=== PATIENT | male | born 1985 | race Caucasian/White ===

== ENCOUNTER 2020-08-18 11:43 | Emergency (ER) | payer OTHER, SELFPAY ==
[2020-08-18 11:51] VITALS: BP 132/76; PULSE 79; RESP 18; TEMP 37.1; O2SAT 98; BMI 24.3
--- NOTE | 2020-08-18 12:09 | HMH.EDUTC ---
[facility] Disposition Clinical Impression: Exposure to COVID-19 virus Pharyngitis Qualifiers: Pharyngitis/tonsillitis etiology: unspecified etiology Qualified Code(s): J02.9 - Acute pharyngitis, unspecified Disposition: Home, Self-Care Condition on Discharge: Good Instructions: DI for Pharyngitis/Tonsillopharyngitis -- Adult, Preventing the Spread of Coronavirus Discharge Instructions Additional Instructions: Drink plenty of fluids. Take tylenol for pain or fever. Return if you begin to have difficulty breathing. Follow up with your regular doctor. GO TO THE ER FOR ANY WORSENING SYMPTOMS Prescriptions: Azithromycin [Z-Darinel 250mg Tab*] 250 mg PO UD DOSE PK #6 tab Transmission Status: Received by [id number] Referrals: PCP,No [Primary Care Provider] - Time of Disposition: :19 Medical Decision Making - Medical Records Medical records reviewed: No: I reviewed the patient's medical records. - Gus Inquiry Pt receiving controlled substance: No Vital Signs: 08/18/20 11:51 08/18/20 12:34 Temperature 98.7 F 98.5 F Temperature Source Oral Oral Pulse Rate 72 Pulse Rate [Left] 79 Respiratory Rate 18 18 Blood Pressure 129/80 Blood Pressure [Right Arm] 132/76 Blood Pressure Mean [Right Arm] 94 02 Sat by Pulse Oximetry 98 Oxygen Delivery Method Room Air - Lab Data Lab Results 08/18/20 12:07: Influenza Type A Ag Negative, Influenza Type B Ag Negative 08/18/20 12:07: Strep Scn Rapid Clinic Negative Orders (Tests/Meds): ORDERS Category Date Time Status Strep Screen Confirmation Stat Micro 08/18/20 12:07 Received [facility] HPI - General Stated complaint: sore throat,no energy Time Seen by Provider: 08/18/20 12:09 Mode of Arrival: Ambulatory Source of Information: Patient Limitations: No Limitations Description of Symptoms (Recalled from Triage Doc. by RN): sore throat, nausea, and fatigue for about a week. HEENT Symptoms (Recalled from RN notes): Yes (sore throat) Resp Symptoms (Recalled from RN notes): No Skin Symptoms (Recalled from RN notes): No MS Symptoms (Recalled from RN notes): No Functional Status (Recalled from RN notes): na - History of Present Illness Provider Complaint: He states that he has had a sore throat and low grade fever for the past 3 days. He denies any sick contacts. He also has had nausea. He has a cough, but he denies any shortness of breath and chest pain. - Related Data Previous Rx's Medication Instructions Recorded Azithromycin [Z-Darinel 250mg Tab*] 250 mg PO UD DOSE PK #6 tab 08/18/20 Allergies Allergy/AdvReac Type Severity Reaction Status Date / Time No Known Allergies Allergy Verified 08/18/20 11:55 - Worker's Comp Is this a Worker's Comp case?: No [facility] History - Hepatitis A Screen Drug use history?: No High risk sexual behaviors?: No History of sexually transmitted infection?: No Currently employed?: No Childcare worker?: No Do you have indoor plumbing?: Yes Do you have electricity?: Yes Attestation statement:: This patient has been screened for Hepatitis A risk factors. I have reviewed the patient's past medical history: Yes - Social History Smoking Status: Never smoker Tobacco Type: cigarettes # Packs/Day (cigarettes): 1 Alcohol Intake: never Alcohol Intake Frequency:: a few times a week Substance Use Type: heroin Occupational Status: employed ROS Obtained: Yes All systems reviewed & no additional complaints - Constitutional Constitutional: Reports chills, Reports fever(s), Reports poor appetite, Reports malaise - Eyes Eyes: Denies eye discharge - ENT Ears, Nose, Mouth, and Throat: Reports as per HPI - Cardiovascular Cardiovascular: Denies chest pain - Respiratory Respiratory: Denies chest congestion, Reports cough, Denies dyspnea, Denies stridor, Denies wheezing - Gastrointestinal Gastrointestingal: Reports: nausea. Denies: abdominal pain, diarrhea, pain with swallowing Physic
[2020-08-18 12:15] LABS: UTC Influenza A Antigen Negative (Negative); UTC Strep Screen (Rapid) Negative (Negative)
[2020-08-18 12:16] LABS: UTC Influenza B Antigen Negative (Negative)
[2020-08-18 12:34] VITALS: BP 129/80; PULSE 72; RESP 18; TEMP 36.9
== END 2020-08-18 12:35 | disposition home or self-care (01) ==
PROVIDERS: Emergency Provider Nurse Practitioner Family
DX: J02.9 Acute pharyngitis, unspecified (principal); R50.9 Fever, unspecified; R11.0 Nausea; R53.83 Other fatigue; R05 Cough; Z20.822 Contact with and (suspected) exposure to COVID-19
CPT/HCPCS: 87804; 87880; 99202; G0463; U0003

== ENCOUNTER 2022-04-17 21:18 | Emergency (ER) | payer OTHER, SELFPAY ==
[2022-04-17 21:28] VITALS: BP 138/95; BP 150/94; PULSE 112; RESP 16; TEMP 36.6; O2SAT 98; BMI 25.1
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
[2022-04-17 22:00] VITALS: BP 139/93; BP 140/90; PULSE 103; PULSE 97; RESP 20; O2SAT 91; O2SAT 95; BMI 25.2
[2022-04-17 22:31] VITALS: BP 120/83; PULSE 97; O2SAT 92
[2022-04-17 23:00] VITALS: BP 103/71; PULSE 99; O2SAT 95
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
[2022-04-17 23:35] VITALS: BP 105/75; PULSE 74; RESP 17; TEMP 37.1; O2SAT 94; BMI 25.2
== END 2022-04-17 23:45 ==
PROVIDERS: Emergency Provider Emergency Medicine
DX: F17.210 Nicotine dependence, cigarettes, uncomplicated; W22.8XXA Striking against or struck by other objects, initial encounter
CPT/HCPCS: 70450; 71045; 72125; 72170; 99285

== ENCOUNTER 2024-05-10 09:06 | Outpatient (CLI) | payer MEDICAID, SELFPAY ==
[2024-05-14 12:24] LABS: HCV Ab Reactive (Non Reactive)
[2024-05-17 07:29] LABS: Free Testosterone (Direct) 2.3 pg/mL (8.7-25.1); Testosterone, Total, LC/MS 196.9 ng/dL (264.0-916.0)
== END 2024-05-10 23:59 | disposition home or self-care (01) ==
PROVIDERS: PCP Family Medicine; Visit Provider Family Medicine
DX: R53.83 Other fatigue (principal); B19.20 Unspecified viral hepatitis C without hepatic coma
CPT/HCPCS: 36415; 86803

== ENCOUNTER 2024-05-20 08:04 | Outpatient (CLI) | payer MEDICAID, SELFPAY ==
[2024-05-20 08:25] LABS: Basophils # 0.1 K/mm3 (0-0.2); Basophils % 1.2 % (0.1-2.0); Eosinophils # 0.2 K/mm3 (0.0-0.4); Eosinophils % 3.7 % (0.1-12.0); Hematocrit 41.8 % (42.0-52.0); Hemoglobin 14.5 g/dL (14.1-18.0); Lymphocytes # 1.7 K/mm3 (0.7-4.5); Mean Corpuscular HGB Conc 34.8 g/dL (31.8-35.4); Mean Corpuscular Hemoglobin 29.2 pg (27.0-31.2); Mean Platelet Volume 8.3 fl (7.4-10.4); Monocytes # 0.3 K/mm3 (0.1-1.0); Monocytes % 5.4 % (1.7-9.3); Neutrophils # 2.7 K/mm3 (1.8-7.8); Neutrophils % 55.6 % (37.0-80.0); Platelet Count 171 K/mm3 (142-424); Red Blood Count 4.98 M/mm3 (4.60-6.20); Red Cell Distribution Width 13.6 % (11.5-17.5); White Blood Count 4.9 K/mm3 (4.8-10.8)
[2024-05-20 08:31] LABS: INR 0.93 (0.9-1.1); Prothrombin Time 10.5 seconds (10.1-12.5)
[2024-05-20 09:27] LABS: Alanine Aminotransferase 17 U/L (12-78); Albumin/Globulin Ratio 1.4 (1.1-1.8); Alkaline Phosphatase 78 U/L (38-126); Anion Gap 8.9 mEq/L (5-15); Aspartate Amino Transferase 27 U/L (17-59); Bilirubin,Total 0.5 mg/dl (0.2-1.3); Blood Urea Nitrogen 8 mg/dl (9-20); Calcium 9.2 mg/dl (8.4-10.2); Carbon Dioxide 31 mmol/L (22.0-30.0); Chloride 105 mmol/L (98-107); Chol/HDL Ratio 3.5 (1-3.5); Cholesterol 163 mg/dl (140-200); Estimated Glomerular Filt Rate 108 ml/min (>60); GFR (African American) 131 ML/MIN (>60); Globulin 2.9 g/dL (1.3-3.2); Glucose 82 mg/dl (74-100); HDL Cholesterol 47 mg/dl (40-60); Potassium 3.9 mmoL/L (3.5-5.1); Sodium 141 mmol/L (136-145); Total Protein,Serum 6.9 g/dl (6.3-8.2); Triglycerides 140 mg/dl (30-150); VLDL Cholesterol 28 mg/dL (0-40)
[2024-05-20 09:55] LABS: Direct LDL Cholesterol 97.51 mg/dL (100-129)
[2024-05-20 13:55] LABS: HIV (1&2) Antibody Rapid NONREACTIVE (NONREACTIVE)
[2024-05-23 19:09] LABS: HBsAg Screen Negative (Negative); HCV Ab Reactive (Non Reactive); Hep A Ab, IGM Negative (Negative); Hep B Core Ab, IgM Negative (Negative)
== END 2024-05-20 23:59 | disposition home or self-care (01) ==
LOC: LAB 08:05
PROVIDERS: PCP Family Medicine; Visit Provider Family Medicine
DX: B19.20 Unspecified viral hepatitis C without hepatic coma (principal); Z13.220 Encounter for screening for lipoid disorders
CPT/HCPCS: 36415; 80053; 80061; 80074; 85025; 85610; 87389